=== PATIENT | female | born 1980 | race Hispanic/Latino ===

== ENCOUNTER 2017-11-09 19:56 | Emergency (ER) | payer OTHER ==
[~2017-11-09 19:56] MED LIST: NO HOME MEDS
[2017-11-09] MEDS ORDERED: PREDNISONE 20 MG TABLET ONE (20:35)
[2017-11-09 20:39] LABS: RAPID GROUP A STREP NEGATIVE (NEGATIVE)
[2017-11-09] MEDS ORDERED: IPRATROPIUM/ALBUTEROL SULFATE 3 ML SOLUTION IH ONE (20:45)
== END 2017-11-09 21:52 | disposition home or self-care (01) ==
LOC: EDH 19:56
DX: J20.9 Acute bronchitis, unspecified (principal)
CPT/HCPCS: 81025; 87804; 87880; 94640

== ENCOUNTER 2018-12-29 07:58 | Inpatient (IN) | payer OTHER ==
[~2018-12-29] VITALS: Ht 160 cm; Wt 98.6 kg
[2018-12-29] VITALS (13 sets, daily range): BP systolic 104–121; BP diastolic 54–80
[2018-12-29 08:48] LABS: BASOPHILS % (AUTO) 0.9 % (0.0-5.0); EOSINOPHILS % (AUTO) 0.7 % (0.0-8.0); HEMATOCRIT 42.7 % (36-48); LYMPHOCYTES % (AUTO) 40.6 % (21.0-51.0); MEAN CORPUSCULAR HEMOGLOBIN 29.2 pg (27.0-33.0); MEAN CORPUSCULAR HGB CONC 33.7 g/dL (32.0-36.0); MEAN CORPUSCULAR VOLUME 86.7 fL (79-99); MONOCYTES % (AUTO) 5.8 % (3.0-13.0); NUCLEATED RED BLOOD CELLS 0.1 % (0.0-0.19); PLATELET COUNT (AUTO) 339 K/uL (130-400); RED BLOOD CELL COUNT(AUTO) 4.93 MIL/uL (4.00-5.50); RED CELL DISTRIBUTION WIDTH 13.8 % (11.0-15.5)
[2018-12-29 08:56] LABS: CREATININE 0.7 mg/dL (0.5-1.5); POTASSIUM 4.2 mmol/L (3.5-5.1)
[2018-12-29 09:03] LABS: ALBUMIN 3.6 g/dL (3.5-5.0); BILIRUBIN,TOTAL 0.2 mg/dL (0.2-1.0); TOTAL PROTEIN, SERUM 7.5 g/dL (6.0-8.3)
[2018-12-29] MEDS ORDERED: IOHEXOL-350 75 ML VIAL IV ONE (09:08)
[2018-12-29 09:10] LABS: INR 0.86 (0.85-1.15); PARTIAL THROMBOPLASTIN TIME 30.7 SEC (26.3-35.5); PROTHROMBIN TIME 9.1 SEC (9.6-11.6)
[2018-12-29] MEDS ORDERED: ACETAMINOPHEN EXTRA STRENGTH 500 MG TABLET ONE (12:40)
[2018-12-29] MEDS ORDERED: HYDROCODONE/ACETAMINOPHEN 5/325 MG TAB ONE (13:54)
[2018-12-29] MEDS ORDERED: LACTULOSE 20 GM/30 ML UDCUP PO PRN (18:00)
[2018-12-29] MEDS ORDERED: ACETAMINOPHEN 325 MG TAB PO PRN (18:00)
[2018-12-29] MEDS ORDERED: HYDRALAZINE HCL 20 MG/ML VIAL IV PRN (18:00)
[2018-12-29] MEDS ORDERED: ONDANSETRON HCL 4 MG/2 ML VIAL IV PRN (18:00)
[2018-12-29] MEDS ORDERED: FAMOTIDINE/PF 20 MG/2 ML VIAL IV ONE (18:16)
[2018-12-29 18:26] LABS: CHOLESTEROL 219 mg/dL (<200); HDL CHOLESTEROL 129 mg/dL (35-85); LDL DIRECT 126 mg/dL (0-99); TRIGLYCERIDES 118 mg/dL (30-200)
[2018-12-29 18:29] LABS: HEMOGLOBIN A1C 5.5 % (4.0-6.0)
--- NOTE | 2018-12-29 20:00 | NUR ---
RECEIVED FROM ER BY STRETCHER TO ICU 210. PLACED ON BEDSIDE MONITOR,NIBP, PULSE OXIMETER. CALL LIGHT GIVEN AND EXPLAINED. UP TO BR TO VOID. INSTRUCTED NOT TO GET UP WITH OUT HELP. CALL LIGHT GIVEN AND EXPLAINED.
[2018-12-29] MEDS ORDERED: FAMOTIDINE/PF 20 MG/2 ML VIAL IV SCH (21:00)
--- NOTE | 2018-12-29 21:15 | NUR ---
MD VISIT DR COKER IN TO SEE HER. AT BEDSIDE.
[2018-12-30] VITALS (36 sets, daily range): BP systolic 94–132; BP diastolic 45–86
[2018-12-30] MEDS: INSULIN HUMULIN R 100 UNIT/ML 3ML SQ SCH ×4 (07:00→21:00)
--- NOTE | 2018-12-30 09:40 | NUR ---
DELORIS MET w pt and psouse in ICU, s/p TPA for CVA; pt is aaox3, smiling, and states only has some residual numbness. indp of adls, employed, no dme, hh,; dcp is home, pending PT and st Addendum: 12/30/18 at 1309 by TEO FORD RN CM Amended: Links added.
[2018-12-30] MEDS: FAMOTIDINE 20MG TAB 20 MG TAB PO SCH ×2 (10:53→20:24)
[2018-12-30] MEDS: ACETAMINOPHEN 325 MG TAB PO PRN ×2 (10:54→20:25)
--- NOTE | 2018-12-30 12:35 | NUR ---
DYSPHAGIA EVAL COMPLETE. -S/S OF ASPIRATION. RECOMMEND REGULAR, THIN LIQUID DIET; PILLS WHOLE WITH LIQUIDS. PATIENT INFORMATION: Pt IS A 38 Y.O. FEMALE REFERRED FOR A BEDSIDE DYSPHAGIA EVALUATION SECONDARY TO ADMITTING DIAGNOSIS OF CVA. Pt AAOX3 AND SERVED THE PRIMARY INFORMANT FOR MEDICAL AND SOCIAL HISTORY. Pt REPORTS NO SIGNIFICANT PAST MEDICAL HISTORY. 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 EVALUATION: SWALLOW FUNCTION AND EFFICIENCY WITHIN FUNCTIONAL LIMITS. ORAL MOTOR STRENGTH, COORDINATION, AND ROM WITHIN FUNCTIONAL LIMITS. LARYNGEAL ELEVATION/EXCURSION STRONG WITH TIMELY PHARYNGEAL RESPONSE. NO OVERT SIGNS OR SYMPTOMS OF ASPIRATION PRESENT AT BEDSIDE. VOCAL QUALITY CLEAR WITH NO THROAT CLEAR OR COUGH RESPONSE PRESENT. RECOMMENDATIONS: 1. REGULAR TEXTURE, THIN LIQUID DIET; PILLS WHOLE WITH LIQUIDS. 2. COMPENSATORY STRATEGIES (PROPHYLAXIS): *SEATED AT 90 DEGREE ANGLE G-CODES SWALLOWING: [id number] Addendum: 12/30/18 at 1241 by ALISSA ROMERO Amended: Links added.
--- NOTE | 2018-12-30 12:42 | NUR ---
COGNITIVE EVAL COMPLETE. COGNITIVE-LINGUISTIC ABILITIES WITHIN FUNCTIONAL LIMITS. PATIENT INFORMATION: Pt IS A 38 YEAR OLD FEMALE REFERRED FOR A COGNITIVE-LINGUISTIC EVALUATION SECONDARY TO DIAGNOSIS OF CVA. PT SERVED THE PRIMARY INFORMANT FOR SOCIAL AND MEDICAL HISTORY. Pt REPORTS THAT SHE DOES NOT HAVE ANY SIGNIFICANT PAST MEDICAL HISTORY. Pt REPORTS FATHER AT 67 FROM HEART ATTACKS AND BROTHER FROM A BRAIN TUMOR AT 17 YEARS OF AGE. EVALUATION: Pt AAOX3. Pt REQUESTS WANTS AND NEEDS INDEPENDENTLY. Pt INTELLIGIBLE AT 100% ACCURACY TO THE UNFAMILIAR LISTENER. Pt COMMUNICATING AT CONVERSATIONAL LEVEL WITH NO DEFICITS IDENTIFIED AT THIS TIME. Pt COMPLETED COGNITIVE-LINGUISTIC EVALUATION TARGETING: ORIENTATION, ATTENTION/CONCENTRATION, MEMORY (IMMEDIATE, SHORT-TERM AND LONG-TERM), PROBLEM SOLVING, LOGIC/REASONING/INFERENCE, THOUGHT ORGANIZATION, FUNCTIONAL MATH AND TELLING TIME. Pt ABLE TO COMPLETE TASKS WITH CORRECT AND TIMELY ANSWERS TO ALL SECTIONS. G-CODES SPOKEN LANGUAGE EXPRESSION: [id number] Addendum: 12/30/18 at 1244 by ALEX [facility]ESE [facility] Amended: Links added.
[2018-12-30] MEDS: ASPIRIN 325MG EC TAB 325 MG TABLET.DR PO SCH (14:04)
[2018-12-30] MEDS: ATORVASTATIN CALCIUM 20 MG TABLET PO SCH (20:24)
--- NOTE | 2018-12-30 21:30 | NUR ---
PT IN BED, STATES HEADACHE. TYLENOL PRN PROVIDED. NO DISTRESS NOTED. NO SOB. ABLE TO AMBULATE WITH MINIMAL ASSISTANCE. AAO3. PERRLA. MINIMAL WEAKNESS NOTED TO LEFT ARM AT TIMES STATES RIGHT ARM FEELS WEAK. NEURO CHECK DONE. ABLE TO TAKE MEDICATIONS DIRECTED. ABLE TO LIFT ARMS AND LEGS. ABLE TO PRESS WHEN PUSHED AGAINST.
[2018-12-31] VITALS (7 sets, daily range): BP systolic 98–129; BP diastolic 58–80
[2018-12-31] MEDS: INSULIN HUMULIN R 100 UNIT/ML 3ML SQ SCH ×4 (07:30→21:00)
[2018-12-31] MEDS: FAMOTIDINE 20MG TAB 20 MG TAB PO SCH ×2 (10:23→20:33)
[2018-12-31] MEDS: ASPIRIN 325MG EC TAB 325 MG TABLET.DR PO SCH (10:23)
--- NOTE | 2018-12-31 11:24 | NUR ---
DR. MUELLER IS IN TO SEE PATIENT. ORTHOSTATIC VITALS TAKEN. RESULTS ARE NEGATIVE.
[2018-12-31] MEDS ORDERED: WARFARIN SODIUM 10 MG TABLET PO SCH (16:45)
[2018-12-31] MEDS: ATORVASTATIN CALCIUM 20 MG TABLET PO SCH (20:33)
[2019-01-01] VITALS: BP 104/68
--- NOTE | 2019-01-01 | NUR ---
PT HAS BEEN STABLE. NO HEADACHES. NO PAIN. AAO3. PERRLA. STRONG UPPER/LOWER EXTREMITIES. PT STATES SHE IS NOTICING IMPROVEMENT. SHE IS ABLE TO MOVE MORE OFTEN AND WALK ALOT MORE. SHE IS ABLE TO GRASP PROPERLY AND DOES NOT FEEL WEAKNESS COMPARED TO PRIOR DAYS.
[2019-01-01 03:27] LABS: BASOPHILS % (AUTO) 0.7 % (0.0-5.0); EOSINOPHILS % (AUTO) 1.8 % (0.0-8.0); LYMPHOCYTES % (AUTO) 45.7 % (21.0-51.0); MEAN CORPUSCULAR HEMOGLOBIN 28.5 pg (27.0-33.0); MEAN CORPUSCULAR VOLUME 86.3 fL (79-99); MONOCYTES % (AUTO) 6.2 % (3.0-13.0); NEUTROPHILS % (AUTO) 45.6 % (40.0-77.0); NUCLEATED RED BLOOD CELLS 0.1 % (0.0-0.19); PLATELET COUNT (AUTO) 353 K/uL (130-400); RED BLOOD CELL COUNT(AUTO) 4.75 MIL/uL (4.00-5.50); RED CELL DISTRIBUTION WIDTH 13.5 % (11.0-15.5); WHITE BLOOD COUNT (AUTO) 8.8 K/uL (4.8-10.8)
[2019-01-01 03:58] LABS: INR 0.96 (0.85-1.15); PROTHROMBIN TIME 10.1 SEC (9.6-11.6)
[2019-01-01 04:00] VITALS: BP 107/64
[2019-01-01] MEDS: INSULIN HUMULIN R 100 UNIT/ML 3ML SQ SCH ×4 (06:59→21:30)
[2019-01-01 07:39] VITALS: BP 103/65
[2019-01-01] MEDS: ASPIRIN 81MG TAB.CHEW PO SCH (09:54)
[2019-01-01] MEDS: FAMOTIDINE 20MG TAB 20 MG TAB PO SCH ×2 (09:54→20:08)
[2019-01-01 11:13] VITALS: BP 99/64
[2019-01-01] MEDS ORDERED: WARFARIN SODIUM 10 MG TABLET PO SCH ×2 (11:45→16:00)
[2019-01-01 15:20] VITALS: BP 105/67
[2019-01-01] MEDS: ACETAMINOPHEN 325 MG TAB PO PRN (16:46)
[2019-01-01 19:21] VITALS: BP 103/60
[2019-01-01] MEDS: ATORVASTATIN CALCIUM 20 MG TABLET PO SCH (20:08)
--- NOTE | 2019-01-01 21:00 | NUR ---
PT WAS ABLE TO AMBULATE IN BEGINNING OF SHIFT WITHOUT ASSISTANCE. STATES MINOR DIZZINESS. WAS MONITORED DUE TO RISK FOR FALLS. PT AMBULATED DOWN THE HALLWAY AND BACK. STATES NO PAIN. NO DISTRESS NOTED. MEDICATIONS TAKEN DIRECTED.
[2019-01-02 00:16] VITALS: BP 104/61
[2019-01-02 03:57] LABS: INR 1.18 (0.85-1.15); PROTHROMBIN TIME 12.3 SEC (9.6-11.6)
[2019-01-02 04:20] VITALS: BP 102/67
[2019-01-02] MEDS: INSULIN HUMULIN R 100 UNIT/ML 3ML SQ SCH (07:01)
[2019-01-02 08:02] VITALS: BP 118/76
[2019-01-02] MEDS: ASPIRIN 81MG TAB.CHEW PO SCH (09:38)
[2019-01-02] MEDS: FAMOTIDINE 20MG TAB 20 MG TAB PO SCH (09:38)
--- NOTE | 2019-01-02 10:00 | NUR ---
MD CEM BLISS VISITED WITH PATIENT. POC DISCUSSED WITH PATIENT AND AWARE. WILL CONTINUE TO BE OBSERVED. WAITING ON CARDIOLOGY FOR POSSIBLE DC THIS AFTERNOON. NO QUESTIONS OR CONCERNS VOICED AT THIS TIME. WILL CONTINUE TO BE OBSERVED. CALL LIGHT WITHIN REACH. SPOUSE AT BEDSIDE. Addendum: 01/02/19 at 1415 by YOMAIRA SMITH RN RN Amended: Links added.
[2019-01-02 11:51] VITALS: BP 109/71
[2019-01-02] MEDS ORDERED: ATOR10 PO (13:40)
[2019-01-02] MEDS ORDERED: ASPI-1012 PO (13:40)
--- NOTE | 2019-01-02 15:00 | NUR ---
DISCHARGE PATIENT GIVEN DISCHARGE INSTRUCTIONS AND EDUCATION, INCLUDING SIDE EFFECTS ON NEW PRESCRIBED MEDICATIONS AND FOLLOW UP APPOINTMENTS. PATIENT VERBALIZED UNDERSTANDING OF ALL EDUCATION GIVEN VIA TEACH BACK. NO QUESTIONS OR CONCERNS VOICED AT THIS TIME. IV DISCONTINUED, CATHETER INTACT. STAFF SOFTWARE ENGINEER DISCONTINUED, MONITOR AWARE. NO SIGNS OF DISTRESS NOTED UPON DISCHARGE. PATIENT LEFT VIA WHEELCHAIR TO PRIVATE CAR. ALL BELONGINGS TAKEN WITH. Addendum: 01/02/19 at 1655 by YOMAIRA SMITH RN RN Amended: Links added.
== END 2019-01-02 15:45 | disposition home or self-care (01) | DRG 62 ==
LOC: EDH 07:58 → EDHIP 07:59 → 2BH 20:00 → 2AH 12-30 18:40
PROVIDERS: ADMIT Internal Medicine; ATTEND Internal Medicine
DX: I63.512 Cerebral infarction due to unspecified occlusion or stenosis of left middle cerebral artery (principal); G81.94 Hemiplegia, unspecified affecting left nondominant side; Q21.1 Atrial septal defect; E78.5 Hyperlipidemia, unspecified; I65.22 Occlusion and stenosis of left carotid artery; Z86.73 Personal history of transient ischemic attack (TIA), and cerebral infarction without residual deficits; Z83.3 Family history of diabetes mellitus; Z82.5 Family history of asthma and other chronic lower respiratory diseases; Z82.49 Family history of ischemic heart disease and other diseases of the circulatory system; Z82.3 Family history of stroke; Z82.0 Family history of epilepsy and other diseases of the nervous system
CPT/HCPCS: 36415; 70450; 70496; 70498; 71045; 80053; 80061; 82550; 82948; 83036; 84484; 85025; 85300; 85302; 85303; 85305; 85306; 85610; 85730; 85732; 92522; 92610; 93005; 93880; C8929; G0378; J2405; J3490; Q9967

== ENCOUNTER 2025-07-09 09:06 | Emergency (ER) | payer BC, OTHER ==
[~2025-07-09] VITALS: Ht 157.5 cm; Wt 98.5 kg
[~2025-07-09 09:06] MED LIST changes: +ASPI-1012 PO; +ATOR10 PO; -NO HOME MEDS
--- NOTE | 2025-07-09 09:18 | ERN ---
General Chief Complaint: Abdominal Pain Stated Complaint: ABD PAIN, NAUSEA Time Seen by MD: 09:08 Source: patient History of Present Illness Initial Comments Patient is a 45-year-old female coming in complaining of lower abdominal pain. Per patient this has been ongoing for several days. Patient was seen at another hospital and was told that she had an "infection". She states that she was told that they did not have the equipment to do the test. Patient states that the pain has been ongoing. No Fever no chills. Allergies: Coded Allergies: No Known Drug Allergies (Verified Allergy, Unknown, 04/04/14) Home Meds Active Scripts Atorvastatin Calcium (LIPITOR) 20 Mg Tab, 20 MG PO HS for 30 Days, #30 TAB Prov:INÉS COKER Jr., MD 01/02/19 Aspirin (ASPIRIN) 325 Mg Tablet, 325 MG PO DAILY for 30 Days, #30 TAB Prov:INÉS COKER Jr., MD 01/02/19 Past Medical History Past Medical History: Migraines, Other Medical History Other: MIGRANES, GASTRITIS Past Surgical History: BTL Female( History) LMP: Jun 27, 2025 ROS Dictation CONSTITUTIONAL: No chills, no fever, no weakness, no diaphoresis, no malaise. HEAD/FACE: No signs of trauma. EENT: No eye pain, no blurred vision, no tearing, no double vision, no ear pain, no ear discharge, no nose pain, no nasal congestion, no throat pain, no throat swelling, no mouth pain. RESPIRATORY: No cough, no orthopnea, no SOB, no stridor, no wheezing. CARDIOVASCULAR: No chest pain, no edema, no palpitations, no syncope. GASTROINTESTINAL/ABDOMINAL: abdominal pain, no constipation, no diarrhea, no nausea, no vomiting. GENITOURINARY: No abnormal discharge, no dysuria, no frequent urination, no hematuria. No complaints of pain in the genitals. MUSCULOSKELETAL: No back pain, no gout, no joint pain, no joint swelling, no muscle pain, no muscle stiffness, no neck pain. INTEGUMENTARY: No change in color, no change in hair/nails, no dryness, no lesion, no lumps, no rash. NEUROLOGICAL/PSYCH: No anxiety, not depressed, no emotional problem, no headache, no numbness, no pre-existing deficit, no history of seizures, no tremors, no weakness. HEMATOLOGIC/LYMPHATIC: Not anemic, no history of blood clots, no apparent bleeding, no bruising, glands not swollen. All Systems Negative, Except as Noted. Physical Exam Physical Exam Dictation VITAL SIGNS: Reviewed. GENERAL APPEARANCE: Alert, oriented x3, no acute distress, obese. HEAD AND FACE: Non-traumatic. EYES: PERRL, pink conjunctivas, eyelid no trauma, anterior chamber clear. EARS: Pinnas intact and no signs of trauma or erythema. Ear canals clear and no discharge. TMs no erythema. NOSE: No discharge, no bleeding. OROPHARYNX: Mouth normal, teeth no caries, tongue pink. Pharynx clear, no erythema. Tonsils no exudates, no abscesses noted. Mucous membrane moist. NECK: Supple, non-tender, no thyromegaly, no masses, no JVD, no bruits. BREAST: Deferred. CHEST: No tenderness, no crepitus, no paradoxical movement, no retractions. LUNGS: Clear, well-ventilated, symmetric, no rales, no wheezing, no rhonchi, no stridor, good breath sounds bilaterally. HEART: Regular rate, regular rhythm, no murmur, no gallops. VASCULAR: No peripheral edema. ABDOMEN: Soft, positive bowel sounds, nondistended, no guarding, nontender, no rebound, no masses no hepatomegaly, no splenomegaly, no Ngo's sign, no hernias. RECTAL: Deferred. GENITAL: Deferred. NEUROLOGICAL: Normal speech, gross motor function intact, gross sensory function intact. MUSCULOSKELETAL: Neck nontender, full range of motion, back nontender, full range of motion. EXTREMITIES: Nontender, full range of motion. SKIN: Color pink, dry, no turgor, no rash, no lacerations, no abrasions, no contusions. LYMPHATICS: Deferred. Results Laboratory and Microbiology Lab and Micro Result Laboratory Tests Test 07/09/25 09:15 07/09/25 09:22 Urine Color LIGHT-YELLOW (YELLOW) Urine Appearance CLOUDY (CLEAR) H Urine pH 7.5 (5.0-8.0) Urine Specific [place] 1.020 (1.001-1.031) Urine Protein NEGATIVE mg/dL (NEGATIVE) Urine Glucose (UA) NEGATIVE mg/dL (NEGATIVE) Urine Ketones 5 mg/dL (NEGATIVE) H Urine Occult Blood NEGATIVE (NEGATIVE) Urine Nitrate NEGATIVE (NEGATIVE) Urine Bilirubin NEGATIVE mg/dL (NEGATIVE) Urine Urobilinogen 0.2 mg/dL (0.2-1.0) Urine Leukocyte Esterase NEGATIVE Pablo/uL Urine RBC 0-1 /HPF (0-1) Urine WBC 2-5 /HPF (0-1) H Urine Squamous Epithelial Cells MOD /HPF (0-2) Urine Bacteria None /HPF (None Seen) Urine HCG, Qualitative NEGATIVE (NEGATIVE) Urine Opiates Screen NEGATIVE (NEGATIVE) Urine Barbiturates Screen NEGATIVE (NEGATIVE) Urine Phencyclidine Screen NEGATIVE (NEGATIVE) Urine Amphetamines Screen NEGATIVE (NEGATIVE) Urine Benzodiazepines Screen NEGATIVE (NEGATIVE) Urine Cocaine Screen NEGATIVE (NEGATIVE) Urine Marijuana (THC) Screen NEGATIVE (NEGATIVE) White Blood Count 8.2 K/uL (4.8-10.8) Red Blood Count 5.15 MIL/uL (4.00-5.50) Hemoglobin 14.5 g/dL (12.0-16.0) Hematocrit 44.9 % (36-48) Mean Corpuscular Volume 87.2 fL (79-99) Mean Corpuscular Hemoglobin 28.2 pg (27.0-33.0) Mean Corpuscular Hemoglobin Concent 32.3 g/dL (32.0-36.0) Red Cell Distribution Width 12.8 % (11.0-15.5) Platelet Count 339 K/uL (130-400) Mean Platelet Volume 9.1 fL (7.5-10.5) Immature Granulocyte % (Auto) 0.2 % (0-1) Neutrophils (%) (Auto) 48.7 % (40.0-77.0) Lymphocytes (%) (Auto) 42.4 % (21.0-51.0) Monocytes (%) (Auto) 6.1 % (3.0-13.0) Eosinophils (%) (Auto) 1.7 % (0.0-8.0) Basophils (%) (Auto) 0.9 % (0.0-5.0) Neutrophils # (Auto) 4.0 K/uL (1.8-7.7) Lymphocytes # (Auto) 3.5 K/uL (1.0-4.8) Monocytes # (Auto) 0.5 K/uL (0.1-1.0) Eosinophils # (Auto) 0.14 K/uL (0.00-0.70) Basophils # (Auto) 0.07 K/uL (0.00-0.20) Absolute Immature Granulocyte (auto 0.02 K/uL (0-1) Nucleated Red Blood Cells 0.0 % (0.0-0.19) Sodium Level 139 mmol/L (136-145) Potassium Level 4.1 mmol/L (3.5-5.1) Chloride Level 106 mmol/L (101-111) Carbon Dioxide Level 27 mmol/L (21-32) Blood Urea Nitrogen 12 mg/dL (7-18) Creatinine 0.6 mg/dL (0.5-1.0) Glomerular Filtration Rate Calc 114 mL/min (>90) Random Glucose 91 mg/dL (70-105) Total Calcium 8.2 mg/dL (8.5-10.1) L Total Bilirubin 0.3 mg/dL (0.2-1.0) Aspartate Amino Transf (AST/SGOT) 13 U/L (10-37) Alanine Aminotransferase (ALT/SGPT) 24 U/L (12-78) Alkaline Phosphatase 88 U/L (50-136) Total Protein 7.1 g/dL (6.0-8.3) Albumin 3.5 g/dL (3.5-5.0) Lipase 26 U/L (16-77) Labs Reviewed?: Yes MDM MDM: Differential diagnosis: Gastritis, history of peptic ulcer disease, dehydration Rationale: Tests considered and ordered secondary to shared decision making include: Previous outside records reviewed: Old ER visits. Risk of complication and/or morbidity or mortality of patient management: None Medications-Per medication reconciliation Need for hospitalization: Patient does not meet criteria for hospitalization. Need for emergency major/minor surgery: No Patient is a 45-year-old female coming in complaining of abdominal discomfort. Per patient she was evaluated in the hospital they told her that she has a stomach infection but they did not have the tools to test her. Laboratory workup today was within normal limits. I did advised her appropriate follow up with a reports analysis manager and PCP for ongoing evaluation and management. Patient was hydrated with IV fluids and given a GI cocktail states he feels better. Patient will be discharged in stable condition. ED Course Orders Procedure Category Date Status Time Cbc With Differential LAB 07/09/25 Complete 09:12 Comprehensive LAB 07/09/25 Complete Metabolic Panel 09:12 ,Urine Test LAB 07/09/25 Complete 09:12 Urinalysis Profile LAB 07/09/25 Complete 09:12 0.9%Nacl 1000ml (Ns PHA 07/09/25 Complete 1000ml) 09:30 Ondansetron 4mg Inj PHA 07/09/25 Complete (Zofran 4mg Inj) 09:30 Lidocaine Hcl 2% PHA 07/09/25 Complete Viscous (Lidocaine Hcl 09:30 Mag/Alum/Simeth 30ml PHA 07/09/25 Complete (Maalox Plus 30ml) 09:30 Pantoprazole 40mg Inj PHA 07/09/25 Complete (Protonix 40mg Inj 09:30 Lipase LAB 07/09/25 Complete 09:12 Drug Screen Urine LAB 07/09/25 Complete 09:12 Current Medications Medications (Trade) Dose Ordered Sig/Jessica Route PRN Reason Start Time Stop Time Status Last Admin Dose Admin Al Hydroxide/Mg Hydroxide (MAALox PLUS 30ML) 30 ml ONCE ONCE PO 07/09/25 09:30 07/09/25 09:31 DC 07/09/25 09:33 Lidocaine HCl (Lidocaine HCl 2% Viscous) 10 ml ONCE ONCE PO 07/09/25 09:30 07/09/25 09:31 DC 07/09/25 09:33 Ondansetron HCl (zoFRAN 4MG INJ) 4 mg ONCE ONCE IVP 07/09/25 09:30 07/09/25 09:31 DC 07/09/25 09:34 Pantoprazole Sodium (PROTonix 40MG INJ) 40 mg ONCE ONCE IVP 07/09/25 09:30 07/09/25 09:31 DC 07/09/25 09:33 Sodium Chloride 1,000 ml @ 0 mls/hr ONCE ONCE IV 07/09/25 09:30 07/09/25 09:31 DC 07/09/25 09:34 Vital Signs Date Time Temp Pulse Resp B/P (MAP) Pulse Ox O2 Delivery O2 Flow Rate FiO2 07/09/25 09:41 98.8 89 16 115/80 99 Room Air* 0 21 07/09/25 09:08 98.1 92 18 116/77 96 Room Air DX & DISP Disposition: Discharge Departure Impression: Primary Impression: History of gastritis Additional Impression: History of peptic ulcer disease Condition: Stable Scripts Mag Hydrox/Al Hydrox/Simeth (Maalox Maximum Strength Susp) 400 Mg-400 Mg-40 Mg/5 Ml Oral.susp 20 ML PO Q6H for 5 Days, #355 ML 0 Refills Prov: ABDI CONTEH MD 07/09/25 Additional Instructions: FOLLOW-UP WITH PRIMARY CARE PROVIDER IN 1 TO 2 DAYS. TAKE MEDICATIONS DIRECTED HERE IN THE EMERGENCY ROOM. OKAY TO CONTINUE HOME MEDICATIONS UNLESS OTHERWISE DISCUSSED DURING YOUR VISIT IN THE EMERGENCY ROOM TODAY. RETURN TO YOUR NEAREST EMERGENCY ROOM IF SYMPTOMS WORSEN OR IF THERE IS NO IMPROVEMENT. CALL 911 IF YOU NEED IMMEDIATE ASSISTANCE. TAKE TYLENOL [id number] NEEDED AND IF NO CONTRAINDICATIONS ARE PRESENT. INCREASE ORAL HYDRATION. A WOUND CULTURE OR URINE CULTURE WAS ORDERED HERE IN THE EMERGENCY ROOM DEPARTMENT PLEASE FOLLOW-UP WITH PRIMARY CARE PROVIDER AND ADVISE THEM TO GET REPORTS FROM OUR FACILITY. IF YOU HAD ANY SHUBHAM WRAP/SPLINTS THAT WERE APPLIED HERE, PLEASE DO NOT REMOVE THEM UNTIL YOU SEE YOUR PRIMARY CARE OR SPECIALTY. Referrals: Referrals: JEANA JOE DO (PCP) Time of Disposition: 10:01 ABDI CONTEH MD Jul 09, 2025 09:18
[2025-07-09 09:29] LABS: IMMATURE GRANULOCYTE ABSOLUTE 0.02 K/uL (0-1); NUCLEATED RED BLOOD CELLS 0.0 % (0.0-0.19); PLATELET COUNT (AUTO) 339 K/uL (130-400); RED BLOOD CELL COUNT(AUTO) 5.15 MIL/uL (4.00-5.50); RED CELL DISTRIBUTION WIDTH 12.8 % (11.0-15.5); WHITE BLOOD COUNT (AUTO) 8.2 K/uL (4.8-10.8)
[2025-07-09 09:31] LABS: APPEARANCE,URINE CLOUDY (CLEAR); GLUCOSE, URINE (UA) NEGATIVE (NEGATIVE); LEUKOCYTE ESTERASE ,URINE NEGATIVE Leu/uL (NEGATIVE); NITRATE,URINE NEGATIVE (NEGATIVE); OCCULT BLOOD,URINE NEGATIVE (NEGATIVE)
[2025-07-09] MEDS: LIDOCAINE HCL 2% VISCOUS 15 ML UDCUP PO ONE (09:33)
[2025-07-09] MEDS: MAG/ALUM/SIMETH 30 ML UDCUP PO ONE (09:33)
[2025-07-09 09:34] LABS: HCG,QUALITATIVE URINE NEGATIVE (NEGATIVE)
[2025-07-09] MEDS: 0.9%NACL 1000ML 1,000 ML IV ONE (09:34)
[2025-07-09 09:35] LABS: ADD UA MICROSCOPIC YES; SQUAMOUS EPITHELIAL CELL,UR MOD /HPF (0-2)
[2025-07-09 09:39] LABS: AMPHET/METH SCREEN,URINE NEGATIVE (NEGATIVE); BARBITURATE SCREEN, URINE NEGATIVE (NEGATIVE); CANNABINOID SCREEN,URINE NEGATIVE (NEGATIVE); COCAINE SCREEN,URINE NEGATIVE (NEGATIVE)
[2025-07-09 09:39] LABS: ASPARTATE AMINOTRANSFERASE 13.0 U/L (10-37); CREATININE 0.6 mg/dL (0.5-1.0); GLOMERULAR FILTR. RATE CALC 114.0 mL/min (>90); GLUCOSE,RANDOM 91.0 mg/dL (70-105); SODIUM SERUM 139.0 mmol/L (136-145); TOTAL PROTEIN, SERUM 7.1 g/dL (6.0-8.3); UREA NITROGEN, BLOOD 12.0 mg/dL (7-18)
[2025-07-09] MEDS ORDERED: MAG-55 PO (10:02)
[2025-07-09 10:09] VITALS: BP 118/73; PULSE 76; RESP 18; TEMP 98.7; O2SAT 98
--- NOTE | 2025-07-09 10:15 | NUR ---
PT GIVEN INSTRUCTION FOR HOME, STABLE NO DISTRESS VITALS WNL STATES PAIN IS MUCH LESS ABLE TO TOLERATE. IV REMOVED CATHETER INTACT. PT GIVEN ONE RX TO START TODAY WILL DROP OFF TO PHARMACY. PT WALKED OUT TO ED LOBBY AND DRIVEN HOME BY SPOUSE.
== END 2025-07-09 10:30 | disposition home or self-care (01) ==
LOC: EDH 09:06
DX: R10.30 Lower abdominal pain, unspecified (principal); Z79.82 Long term (current) use of aspirin; Z79.899 Other long term (current) drug therapy; Z87.11 Personal history of peptic ulcer disease; Z87.19 Personal history of other diseases of the digestive system; Z98.51 Tubal ligation status
CPT/HCPCS: 99284; 96374; 96361; 96375; 80053; 80305; 83690; 85025; 81025; 36415; 81001; J7030; J2405; J2470